=== PATIENT | female | born 1980 | race Caucasian/White ===

== ENCOUNTER 2018-12-24 09:25 | Emergency (ER) | payer MEDICAID ==
[~2018-12-24] VITALS: Ht 167.6 cm; Wt 108.4 kg
[2018-12-24 09:27] VITALS: BP 125/75
[2018-12-24] MEDS ORDERED: KETOROLAC 30 MG/ML VIAL IM ONE (09:55)
[2018-12-24 10:59] VITALS: BP 107/60
== END 2018-12-24 10:44 | disposition home or self-care (01) ==
LOC: MED 09:25
DX: S90.32XA Contusion of left foot, initial encounter (principal); M77.32 Calcaneal spur, left foot; J45.909 Unspecified asthma, uncomplicated; W22.8XXA Striking against or struck by other objects, initial encounter; Y93.89 Activity, other specified; Y92.89 Other specified places as the place of occurrence of the external cause; Y99.8 Other external cause status
CPT/HCPCS: 73630; 96372; 99283; J1885

== ENCOUNTER 2021-06-20 18:43 | Emergency (ER) | payer MEDICAID, OTHER ==
[~2021-06-20] VITALS: Ht 162.6 cm; Wt 109.3 kg
[2021-06-20 18:45] VITALS: BP 137/82
--- NOTE | 2021-06-20 19:25 | NUR ---
HANDOFF REPORT GIVEN TO MILAGROS RN
--- NOTE | 2021-06-20 21:00 | NUR ---
URINE DIP AND URINE PREG DONE. NEG PREG
[2021-06-20] MEDS ORDERED: FLUCONAZOLE 100 MG TAB PO ONE (21:25)
[2021-06-20] MEDS ORDERED: LOTC TP (21:26)
[2021-06-20 21:50] VITALS: BP 138/69
[2021-06-20] MEDS ORDERED: CRUSHER, PILL MC ONE (21:57)
--- NOTE | 2021-06-20 22:13 | NUR ---
Patient discharged with v/s stable. Written and verbal after care instructions given and explained. Patient alert, oriented and verbalized understanding of instructions. Ambulatory with steady gait. All questions addressed prior to discharge. ID band removed. Patient advised to follow up with PMD. Rx of Clotrimazole given. Patient educated on indication of medication including possible reaction and side effects. Opportunity to ask questions provided and answered.
--- NOTE | 2021-06-20 22:18 | NUR ---
The patient's care was reviewed and supervised by Mary Jane Franklin RN, RN.
== END 2021-06-20 22:13 | disposition home or self-care (01) ==
LOC: MED 18:43
DX: N76.0 Acute vaginitis (principal); B37.9 Candidiasis, unspecified
CPT/HCPCS: 81002; 81025; 87210; 99283